=== PATIENT | female | born 1945 | race Two or more races ===

== ENCOUNTER 2021-01-01 20:13 | Emergency (ER) | payer OTHER ==
[2021-01-01 20:24] VITALS: BP 128/77; PULSE 70; TEMP 98.1; BMI 20.2
[2021-01-01] MEDS ORDERED: ONDANSETRON *ODT* 4 MG TABLET ONE (20:28)
[2021-01-01] MEDS ORDERED: ACETAMINOPHEN 500 MG TABLET (FP) ONE (20:28)
[2021-01-01] MEDS ORDERED: ACETAMINOPHEN 500 MG TABLET (FP) PO ONE (20:29)
[2021-01-01] MEDS ORDERED: ONDANSETRON *ODT* 4 MG TABLET SL ONE ×2 (20:29→20:32)
== END 2021-01-01 21:05 | disposition home or self-care (01) ==
LOC: FER 20:13
DX: U07.1 COVID-19 (principal); R11.0 Nausea
CPT/HCPCS: 99283-25; Q0162